=== PATIENT | male | born 1995 | race Asian ===

== ENCOUNTER 2019-03-21 01:32 | Emergency (ER) | payer SELFPAY ==
[~2019-03-21] VITALS: Ht 170.2 cm; Wt 63.0 kg
[2019-03-21] MEDS ORDERED: FAMOTIDINE 20MG TABLET PO ONE (04:00)
[2019-03-21] MEDS ORDERED: ONDANSETRON 4MG ODT PO ONE (04:00)
[2019-03-21 04:13] VITALS: BP 125/72
== END 2019-03-21 04:15 | disposition home or self-care (01) ==
LOC: ER 01:32
DX: R10.13 Epigastric pain (principal); R11.0 Nausea
CPT/HCPCS: 99283; Q0162